=== PATIENT | male | born 1975 | race Caucasian/White ===

== ENCOUNTER → 2018-10-15 | Day surgery (SDC) | payer OTHER ==
[~2018-10-15] MED LIST: CEFTRIAXONE SOD 1 GM/NS 50 ML 50 ML IV ONE; DEXAMETHASONE SOD PHOS INJ 4 MG/ML VIAL ONE; FENTANYL CITRATE/PF 100MCG/2 ML INJ ONE; FLOMAX PO; GENTAMICIN 80MG/NS 100 ML 200 ML IV ONE; IBUPROFEN200 MG PO; IOPAMIDOL 610MG/1ML 300 MG/ML VIAL IV ONE; LIDOCAINE HCL 2% LOCAL INJ 5 ML SDV VIAL INJ ONE; MIDAZOLAM HCL 2 MG/2 ML VIAL ONE; MORPHINE SULFATE INJ 4 MG/ML INJ 1ML ONE; ONDANSETRON HCL INJ 2MG/ML 2ML 2 MG/ML VIAL ONE; PROPOFOL IV EMULSION 10 MG/ML 20 ML VIAL ONE; SEVOFLURANE INHAL SOLN 250 ML PEN BTL ONE; ULTRACET TABLE1 EACH PO
--- OUTSIDE RECORDS SUMMARY | 2018-10-15 08:31 | XMS REPORT | Clinical Summary ---
Author Author [facility] Address Unknown Phone Unavailable Care Team Providers Care Business Reporting Developer Name Role Phone Asked, No Pcp PCP Unavailable Allergies Not on File Medications Not on file Active Problems Not on file Encounters Care Team Description Date Type Specialty Brown Rivas MD Uric acid nephrolithiasis (Primary Dx); Calculus of kidney 10/02/2018 Transcribe Access Orders after 10/14/2017 Social History Date Tobacco Use Types Packs/Day Years Used Never Assessed Sex Assigned at Date Recorded Not on file Industry Job Start Date Occupation Not on file Not on file Not on file Travel End Travel History Travel Start No recent travel history available. Last Filed Vital Signs Not on file Plan of Treatment Health Maintenance Due Date Last Done Comments INFLUENZA VACCINE 10/23/2018 Procedures Comments Procedure Name Priority Date/Time Associated Diagnosis CT RENAL STONE PROTOCOL Routine 10/03/2018 Calculus of kidney 3:38 PM CDT XR ABDOMEN 1 VW Routine 10/02/2018 Uric acid nephrolithiasis 11:18 AM CDT after 10/14/2017 Results * CT Renal Stone Protocol (10/03/2018 3:38 PM CDT) Specimen Narrative Performed At Examination:CT RENAL STONE PROTOCOL [facility] Clinical history:"N20.0 Calculus of kidney, Flank painstone disease suspected" Comparison:There are no prior studies for comparison. Technique:Multiple axial CT images of the abdomen and pelvis were obtained without the intravenous administration of iodinated contrast.Sagittal and coronal computerized, reformatted images were obtained and archived.The lack of intravenous contrast reduces the sensitivity of detecting solid organ and vascular disease.CT imaging was performed with iterative reconstruction technique and/or automated exposure control to reduce radiation dose. Findings: CT ABDOMEN: Heart size is within normal limits. Lung basesare unremarkable. Liver, gallbladder, pancreas, adrenals, and spleen, are within normal limits. Evaluation of the kidneys demonstrates moderate right hydronephrosis and multiple right renal stones. There is a proximal right ureteral obstructing calculus measuring [address] PELVIS: Appendix is within normal limits. Bladder shows no stones. No enlarged pelvic lymph node or mass is seen. A suspicious osseous lesion is not seen. Impression: Obstructing proximal right ureteral stone. Right nephrolithiasis. [id number] Procedure Note Interface, Radiology Results Incoming - 10/03/2018 3:43 PM CDT Examination: CT RENAL STONE PROTOCOL Clinical history: "N20.0 Calculus of kidney, Flank pain stone disease suspected" Comparison: There are no prior studies for comparison. Technique: Multiple axial CT images of the abdomen and pelvis were obtained without the intravenous administration of iodinated contrast. Sagittal and coronal computerized, reformatted images were obtained and archived. The lack of intravenous contrast reduces the sensitivity of detecting solid organ and vascular disease. CT imaging was performed with iterative reconstruction technique and/or automated exposure control to reduce radiation dose. Findings: CT ABDOMEN: Heart size is within normal limits. Lung bases are unremarkable. Liver, gallbladder, pancreas, adrenals, and spleen, are within normal limits. Evaluation of the kidneys demonstrates moderate right hydronephrosis and multiple right renal stones. There is a proximal right ureteral obstructing calculus measuring [address] PELVIS: Appendix is within normal limits. Bladder shows no stones. No enlarged pelvic lymph node or mass is seen. A suspicious osseous lesion is not seen. Impression: Obstructing proximal right ureteral stone. Right nephrolithiasis. [id number] Performing Organization Address City/State/Zipcode Phone Number [facility] [address] [place] [address] * XR Abdomen 1 Vw (10/02/2018 11:18 AM CDT) Specimen Narrative Performed At XR ABDOMEN 1 [facility] CLINICAL INDICATION:N20.0 Calculus of kidney, n20.0 COMPARISON:None. IMPRESSION: The bowel gas pattern is normal. There is a calcific density in the right abdomen measuring 3 mm at the L3 level likely relating to a renal stone. No evidence for free intraperitoneal air. Osseous structures are intact. [id number] Procedure Note Hm Interface, Radiology Results Incoming - 10/02/2018 11:30 AM CDT XR ABDOMEN 1 VW CLINICAL INDICATION: N20.0 Calculus of kidney, n20.0 COMPARISON: None. IMPRESSION: The bowel gas pattern is normal. There is a calcific density in the right abdomen measuring 3 mm at the L3 level likely relating to a renal stone. No evidence for free intraperitoneal air. Osseous structures are intact. [id number] Performing Organization Address City/State/Zipcode Phone Number [facility] [address] [place] [address] after 10/14/2017 Insurance Type Payer Benefit Subscriber ID Effective Phone Address Plan / Dates Group HMO AETNA AETNA xxxxxxxxxx [id number] HMO,POS,EP resent O, MC/EC Advance Directives Patient has advance care planning documents on file. For more information, princess lora contact: Judson Soto [address] [place] [address]
[2018-10-15 15:16] VITALS: BP 132/77
--- NOTE | 2018-10-16 08:11 | Discharge Summary ---
PREOPERATIVE DIAGNOSIS: 1. Right upper 3rd ureteral calculus 8 x 8 mm with hydronephrosis proximal. 2. Right renal calculi. a. A. Upper pole. b. B. Middle pole. c. C. Lower pole 6 to 7 mm calculi. POSTOPERATIVE DIAGNOSIS: 1. Right upper 3rd ureteral calculus 8 x 8 mm with hydronephrosis proximal. 2. Right renal calculi. a. A. Upper pole. b. B. Middle pole. c. C. Lower pole 6 to 7 mm calculi. OPERATIONS: 1. Left upper 3rd ureteral calculus ESWL. 2. Cystoscopy and retrograde pyelogram. 3. Insertion of right double-J ureteral stent 6-Pu[place]ican x 30 cm. ANESTHETIC: General. INDICATIONS: Mr. Norwood is a 43-year-old male, who presented with acute onset of severe pain on the right side. Workup showed that he had calculus right upper 3rd ureter with hydronephrosis proximal. He also had other calculi in the upper, middle, and lower pole. DESCRIPTION OF PROCEDURE: This patient was placed on the table in the lithotomy position and was prepped and draped in a sterile manner after satisfactory anesthesia. #23-[place] cystoscope was used, a cystourethroscopy was performed and it was noted that the urethra was normal. The prosthetic urethra was about 2.5 to 3 cm long and nonocclusive. Cystoscopy was then performed using both right angle and 4 oblique lines and it was noted that the bladder mucosa was normal. Both ureteral orifices were seen and were within normal position. Configuration with no efflux on the right side. Right retrograde pyelogram was performed using an open ended ureteral catheter inserted into right ureteral orifice and 6 mL of contrast material was injected. The retrograde showed calculus just below the right ureteropelvic junction. There was also the other 3 calculi in old calyceal systems. A 0.38 flexible tip glide wire was then passed through the ureteral catheter, all the way up to the renal pelvis. The ureteral catheter was removed. A 6 [place] x 30 cm double-J stent was threaded over the guide wire through the right ureteral orifice to the kidney bypassing the stone. At this point, the lithotripsy was started starting at 2 kv and slowly and gradually increased to 7 Kv. This was done after the cystoscope has been removed. 4000 shocks were given to the stone in the upper ureter and was almost completely, although there was some rough edges there. The patient tolerated the procedure well and was taken to the recovery room in satisfactory condition. PLAN: Plan for this patient is to be placed on; 1. Levaquin 750 mg once a day. 2. Ultracet tablet 1 every 4 to 6 hours p.r.n. 3. Ditropan 5 mg, one 3 times a day. 4. Tylenol No. 3 one every 4 to 6 hours p.r.n. and was given 40. He is to return to the office on SaturdayOctober 27 when at that time KUB and will be performed and we will do a CT scan and then we will proceed after the rest of the stones. Brown Rivas MD MA/DARRELL /[id number]
== END | disposition home or self-care (01) ==
LOC: OR 08:28
PROVIDERS: ATTEND Specialist
DX: N13.2 Hydronephrosis with renal and ureteral calculous obstruction (principal); I45.10 Unspecified right bundle-branch block
CPT/HCPCS: 50590; 52332; 93005; C1758 ×2; C2617; J0696; J1100; J1580; J2001; J2250; J2270; J2405; J2704; J3010; Q9967